=== PATIENT | male | born 1995 | race Caucasian/White ===

== ENCOUNTER 2023-11-15 10:45 | Outpatient (CLI) | payer OTHER ==
[2023-11-15 11:09] LABS: BASOPHILS % (AUTO) 0.6 % (0.0-2.0); EOSINOPHILS # (AUTO) 0.1 K/uL (0-0.4); EOSINOPHILS % (AUTO) 2.2 % (0.0-4.0); HEMATOCRIT 40.2 % (36-52); HEMOGLOBIN 13.3 g/dL (12.0-18.0); LYMPHOCYTES # (AUTO) 1.2 K/uL (2.0-11.5); LYMPHOCYTES % (AUTO) 30.9 % (20.5-51.1); MEAN CORPUSCULAR HEMOGLOBIN 25 pg (27-31); MEAN CORPUSCULAR HGB CONC 33 g/dL (33-37); MEAN CORPUSCULAR VOLUME 76.7 fL (80-94); MONOCYTES # (AUTO) 0.3 K/uL (0.8-1.0); MONOCYTES % (AUTO) 8.7 % (1.7-9.3); NEUTROPHILS # (AUTO) 2.2 K/uL (1.8-7.7); NEUTROPHILS % (AUTO) 57.6 % (42.2-75.2); PLATELET COUNT (AUTO) 252 K/uL (140-450); RED BLOOD CELL COUNT(AUTO) 5.25 MIL/uL (4.20-6.10); RED CELL DISTRIBUTION WIDTH 15.8 % (11.6-13.7); WHITE BLOOD COUNT (AUTO) 3.8 K/uL (4.8-10.8)
[2023-11-15 11:41] LABS: ALBUMIN 4.2 g/dL (3.4-5.0); CARBON DIOXIDE 29.1 mmol/L (21-32); CHOL/HDL RATIO 2.8 (1-4.5); CREATININE 0.9 mg/dL (0.6-1.3); POTASSIUM 4.1 mmol/L (3.5-5.1); THYROID STIMULATING HORMONE 1.43 uIU/mL (0.34-3.74); TOTAL BILIRUBIN 0.8 mg/dL (0.0-1.0); TOTAL PROTEIN, SERUM 7.9 g/dL (6.4-8.2)
== END 2023-11-15 20:21 | disposition home or self-care (01) ==
LOC: MLB 10:45
PROVIDERS: ATTEND Family Medicine
DX: F33.1 Major depressive disorder, recurrent, moderate (principal)
CPT/HCPCS: 36415; 80053; 82306; 84443; 85025

== ENCOUNTER 2024-05-16 12:09 | Emergency (ER) | payer OTHER ==
[~2024-05-16] VITALS: Ht 172.7 cm; Wt 67.1 kg
[2024-05-16 12:10] VITALS: BP 151/76; PULSE 89; RESP 16; TEMP 98; O2SAT 99
[2024-05-16] MEDS ORDERED: SULF-59 PO (12:31)
[2024-05-16] MEDS ORDERED: IBUP-2213 PO (12:31)
[2024-05-16] MEDS ORDERED: BACTO TP (12:31)
[2024-05-16] MEDS: LIDOCAINE MPF 1% 10 MG/ML VIAL INJ ONE (12:39)
[2024-05-16] MEDS: BACITRACIN OINT 500 UNITS/GM PKT TP ONE (12:39)
[2024-05-16 13:24] VITALS: BP 151/76; PULSE 89; RESP 16; TEMP 98; O2SAT 99
== END 2024-05-16 13:24 | disposition home or self-care (01) ==
LOC: MED 12:09
DX: L03.012 Cellulitis of left finger (principal); Z79.899 Other long term (current) drug therapy
CPT/HCPCS: 10060; 99283; J2003